=== PATIENT | female | born 1980 | race Caucasian/White ===

== ENCOUNTER 2023-09-26 10:40 | Outpatient (CLI) | payer OTHER, SELFPAY ==
--- NOTE | ~2023-09-26 | MR_ITS ---
MRI of the right ankle Clinical history: Fracture Technique: Coronal proton-density and proton-density fat-sat images, axial proton-density and proton- density fat-sat images, and sagittal proton-density and proton-density fat-sat images were acquired. Findings: Syndesmotic ligaments are intact. Anterior and posterior talofibular ligaments, and calcane ofibular ligament are intact. Deltoid ligament is intact. Medial flexor tendons, peroneal tendons, anterior extensor tendons, and Achilles tendon are intact. There is an acute, oblique, minimally displaced fracture of the distal fibular shaft, at and just pro ximal to the level ankle mortise. There is a probable vertically oriented nondisplaced acute fracture of the posterior malleolus. No other fracture seen. Osseous structures are intact. Small tibiotalar joint effusion present. Plantar fascia intact. There is mild soft tissue edema at the lateral aspect of the ankle. Impression: Acute, oblique, minimally displaced fracture the distal fibula, as detailed above. Acute nondisplaced small posterior malleolus fracture. Reviewed, dictated and finalized at location . Impression: Acute, oblique, minimally displaced fracture the distal fibula, as detailed abo ve. Acute nondisplaced small posterior malleolus fracture.
== END 2023-09-26 10:41 ==
PROVIDERS: PCP Physician Assistant; Visit Provider Physician Assistant
DX: S82.831D Other fracture of upper and lower end of right fibula, subsequent encounter for closed fracture with routine healing (principal); X58.XXXD Exposure to other specified factors, subsequent encounter
CPT/HCPCS: 73721

== ENCOUNTER 2023-10-06 11:29 | Outpatient (CLI) | payer OTHER, SELFPAY ==
--- NOTE | ~2023-10-06 | CT_ITS ---
EXAMINATION: CT ankle RT wo con DATE: 10/06/2023 12:16 INDICATION: Delayed healing of a distal right fibular fracture with lateral right ankle pain TECHNIQUE: High resolution computed tomography (CT) of the right ankle was performed without intraven ous contrast. Additional sagittal and coronal reconstructions were performed. Automated exposure cont rol and iterative reconstruction technique were employed. The dose-length product was 172.54 mGy-cm. COMPARISON: None FINDINGS: Mildly comminuted minimally displaced oblique fracture along the distal left fibula which exits the m edial cortex near the level of the tibiotalar joint line consistent with a Acosta type B injury patter n. There is a minimal amount of callus formation along the lateral side of the proximal margin of the fracture plane which appears essentially bridging but which extends for only 6 mm proximal to distal along a fracture plane which extends at least 7.5 cm in length. No other evident callus formation al guzman the remainder of the fracture. No cortication along the fracture plane to suggest progression to nonunion. The previously noted posterior malleolar fracture appears to be healed in essentially anato brooke alignment. There is a tiny minimally distracted avulsion fracture fragment along the anterior mar gin of the lateral malleolus at the footplate of the distal tibiofibular ligament which appears thick ened. There also appears be thickening of the anterior talofibular ligament suggesting possible sprai n. The calcaneofibular ligament appears normal. No evident thickening of the superficial deltoid liga ment suggests sprain. No other fractures identified. Joint spaces are relatively preserved. Small het erotopic ossicle at the calcaneal insertion of the distal Achilles tendon. No ankle joint effusion. IMPRESSION: 1. Minimal amount of bridging or nearly bridging callus formation at the proximal margin of an obliqu e mildly comminuted fractures of the distal right fibula. The vast majority of the fracture however r emains ununited. 2. Tiny minimally distracted avulsion fracture likely involving at least a portion of the fibular ins ertion of the distal tibiofibular ligament. 3. Thickening of the distal tibiofibular ligament as well as anterior talofibular ligament consistent with partial tears which is also consistent with appearance on prior MRI. 4. Complete healing in essentially anatomic alignment of the previously seen nondisplaced fracture at the posterior malleolus. Reviewed, dictated and finalized at location A. IMPRESSION: 1. Minimal amount of bridging or nearly bridging callus formation at the proxim al margin of an oblique mildly comminuted fractures of the distal right fibula. The vast majority of the fracture however remains ununited. 2. Tiny minimally distracted avulsion fracture likely involving at least a port ion of the fibular insertion of the distal tibiofibular ligament. 3. Thickening of the distal tibiofibular ligament as well as anterior talofibul ar ligament consistent with partial tears which is also consistent with appeara nce on prior MRI. 4. Complete healing in essentially anatomic alignment of the previously seen no ndisplaced fracture at the posterior malleolus.
== END 2023-10-06 11:30 ==
PROVIDERS: PCP Physician Assistant; Visit Provider Physician Assistant
DX: S82.831G Other fracture of upper and lower end of right fibula, subsequent encounter for closed fracture with delayed healing (principal); X58.XXXD Exposure to other specified factors, subsequent encounter
CPT/HCPCS: 73700